=== PATIENT | female | born 1990 | race Caucasian/White ===

== ENCOUNTER 2017-09-02 12:18 | Emergency (ER) | payer OTHER ==
[2017-09-02 12:58] LABS: Pregnancy Test - Urine (BHCG) POSITIVE (Negative)
[2017-09-02 12:59] LABS: Pregu Control Background? CLEAR/WHITE (CLR/WHITE); Pregu Control Bar Appear? YES (CONTROL BAR); Specific Gravity 1.028 (1.002-1.036)
== END 2017-09-02 13:30 | disposition home or self-care (01) ==
LOC: ERS 12:18
DX: Z32.01 Encounter for pregnancy test, result positive (principal)
CPT/HCPCS: 81025; 99282